=== PATIENT | female | born 1965 | race Caucasian/White ===

== ENCOUNTER 2018-07-31 08:32 | Day surgery (SDC) | payer MEDICAID, OTHER ==
[~2018-07-31] VITALS: Ht 170.2 cm; Wt 72.8 kg
[2018-07-31] MEDS ORDERED: CHOLESTEROL MED (09:47)
[2018-07-31 09:51] VITALS: Ht 170.2 cm; Wt 72.8 kg
[2018-07-31] MEDS ORDERED: MIDAZOLAM 1 MG/ML 2 ML INJ ONE ×3 (11:39)
[2018-07-31] MEDS ORDERED: MEPERIDINE 50 MG INJ ONE (12:34)
[2018-07-31] MEDS ORDERED: FENTAnyl 50 MCG/ML VIAL ONE (12:38)
== END 2018-07-31 13:38 | disposition home or self-care (01) ==
LOC: GIL 08:32
PROVIDERS: ATTEND Internal Medicine Gastroenterology
DX: Z12.11 Encounter for screening for malignant neoplasm of colon (principal); K64.4 Residual hemorrhoidal skin tags; R10.13 Epigastric pain
CPT/HCPCS: 43239; 45378; 84703; J2175; J2250; J3010; Z7610; 88305